=== PATIENT | male | born 1950 | race African-American/Black ===

== ENCOUNTER 2024-07-18 16:02 | Observation (INO) | payer MEDICARE ==
[2024-07-18] MEDS ORDERED: Acetaminophen 325 MG TAB PO PRN (16:51)
[2024-07-18] MEDS ORDERED: Loperamide HCl 2 MG CAP PO PRN (16:51)
[2024-07-18] MEDS ORDERED: Ondansetron ODT 4 MG TAB PO PRN (16:51)
[2024-07-18] MEDS ORDERED: Senokot S 8.6-50 MG TAB PO PRN (16:51)
[2024-07-18] MEDS ORDERED: Calcium Carbonate 500 MG ChewTAB PO PRN (16:51)
[2024-07-18 16:59] LABS: #Basophils 0.02 10x3/uL (0.0-0.2); #Eosinphils 0.21 10x3/uL (0.0-0.5); #Monocytes 0.38 10x3/uL (0.0-1.1); #Neutrophils 2.16 10x3/uL (1.5-8.4); %Basophils 0.5 % (0.0-2.0); %Eosinophils 4.7 % (0.0-6.0); %Lymphocytes 37.4 % (18.0-47.0); %Monocytes 8.6 % (0.0-10.0); %Neutrophils 48.6 % (40.0-75.0); Hematocrit 42.7 % (38.8-50.0); Hemoglobin 13.8 g/dL (13.5-17.5); Mean Corpuscular HGB CONC 32.3 g/dL (32.0-36.0); Mean Corpuscular Hemoglobin 32.4 pg (27.0-33.0); Mean Corpuscular Volume 100.2 fL (81.2-95.1); Platelet Count 244 10x3/uL (150-450); RBC Distribution Width 12.6 % (11.5-14.5); Red Blood Cell (RBC) Count 4.26 10x6/uL (4.32-5.72); White Blood Cell (WBC) Count 4.4 10x3/uL (3.5-10.5)
[2024-07-18] MEDS ORDERED: Metoprolol Tartrate 25 MG TAB ONE (17:00)
[2024-07-18] MEDS ORDERED: Nitroglycerin 2% Ointment 1 INCH/1 GM Packet ONE (17:00)
[2024-07-18 17:12] LABS: ALT (SGPT) 10 U/L (8-55); AST (SGOT) 17 U/L (5-34); Alkaline Phosphatase 40 U/L (40-110); Anion Gap 13 mmol/L (10-20); BUN (Urea Nitrogen) 14 mg/dL (8.4-25.7); Bilirubin, Total 0.5 mg/dL (0.2-1.2); Calc. Creatinine Clearance 0 mL/min (70-130); Carbon Dioxide 25 mmol/L (23-31); Chloride 107 mmol/L (98-107); Estimated GFR 70; Globulin 3.3 g/dL (2.4-3.5); Glucose 89 mg/dL (83-110); Lipase 21 U/L (8-78); Magnesium 1.9 mg/dL (1.6-2.6); Potassium 3.7 mmol/L (3.5-5.1); Protein, Total 7.3 g/dL (5.8-8.1); Sodium 141 mmol/L (136-145)
[2024-07-18] MEDS ORDERED: hydrALAZINE 20 MG/ML VIAL SLOW IVP PRN (17:17)
[2024-07-18 17:18] LABS: PTT 27.7 sec (22.0-33.0); Prothrombin Time 11.2 sec (9.5-12.1)
[2024-07-18 17:19] LABS: Troponin I 0.048 ng/mL (< 0.028)
[2024-07-18] MEDS ORDERED: Furosemide 40 MG (4 mL) VIAL ONE (17:31)
[2024-07-18] MEDS ORDERED: Aspirin Chewable 81 MG TAB ONE (17:40)
[2024-07-18] MEDS: Aspirin 81 mg Enteric Coated Tablet PO SCH (20:40)
[2024-07-18] MEDS: Atorvastatin Calcium 20 MG TAB PO SCH (20:40)
[2024-07-18] MEDS: Nicotine 14 MG PATCH TD SCH (20:40)
[2024-07-19] MEDS: Sodium Chloride 0.9% 1,000 ML IV SCH (02:59)
[2024-07-19] MEDS: Nitroglycerin 2% Ointment 1 INCH/1 GM Packet TOP SCH (02:59)
[2024-07-19 03:43] LABS: Anion Gap 13 mmol/L (10-20); BUN (Urea Nitrogen) 17 mg/dL (8.4-25.7); Calc. Creatinine Clearance 0 mL/min (70-130); Calcium 9.3 mg/dL (7.8-10.44); Carbon Dioxide 25 mmol/L (23-31); Chloride 105 mmol/L (98-107); Estimated GFR 68; Glucose 115 mg/dL (83-110); Potassium 3.8 mmol/L (3.5-5.1); Sodium 139 mmol/L (136-145)
[2024-07-19] MEDS ORDERED: Furosemide 40 MG (4 mL) VIAL ONE (05:52)
[2024-07-19] MEDS ORDERED: Nitroglycerin 2% Ointment 1 INCH/1 GM Packet ONE (05:53)
[2024-07-19] MEDS: Furosemide 40 MG (4 mL) VIAL SLOW IVP SCH (06:07)
[2024-07-19] MEDS ORDERED: Lidocaine 1% PF 5 ML VIAL ONE (06:13)
[2024-07-19] MEDS ORDERED: Nitroglycerin 50 MG/250 ML BOT 0 ML ONE (06:16)
[2024-07-19] MEDS ORDERED: Verapamil 5 MG/2 ML VIAL ONE (06:17)
[2024-07-19] MEDS ORDERED: Heparin 10,000 UNITS/ 10 ML VIAL ONE (06:17)
[2024-07-19] MEDS ORDERED: Adenosine 6 mg (2 mL) VIAL ONE (06:30)
[2024-07-19] MEDS ORDERED: Midazolam HCl 2 mg/2 ml Vial ONE (06:41)
[2024-07-19] MEDS ORDERED: fentaNYL 50 mcg/mL 1 mL Vial ONE (06:41)
[2024-07-19] MEDS ORDERED: Atropine Sulfate 1 mg/1 ml Vial ONE (06:57)
[2024-07-19] MEDS ORDERED: Iopamidol 300 61% 100 ML VIAL FS ONE (07:53)
[2024-07-19] MEDS ORDERED: Acetaminophen/Codeine 30-300mg Tablet PO PRN ×2 (08:13)
[2024-07-19] MEDS ORDERED: Nitroglycerin 0.4 MG TAB (25 Tab Bottle) SL PRN (08:13)
[2024-07-19] MEDS ORDERED: Sodium Chloride 0.9% 200 ML IV PRN (08:13)
[2024-07-19] MEDS ORDERED: Senokot S 8.6-50 MG TAB PO PRN (08:22)
[2024-07-19] MEDS ORDERED: Carvedilol 6.25 MG TAB PO SCH ×2 (08:30→17:00)
[2024-07-19] MEDS ORDERED: Lisinopril 5 MG TAB PO SCH (09:00)
[2024-07-19] MEDS ORDERED: Aspirin 81 mg Enteric Coated Tablet PO SCH (09:00)
== END 2024-07-19 17:00 | disposition short-term general hospital (02) ==
LOC: CSHERS 16:02 → CSHERHOLD 16:51
PROVIDERS: ADMIT Internal Medicine; ATTEND Internal Medicine
PROC: 4A023N8 Measurement of Cardiac Sampling and Pressure, Bilateral, Percutaneous Approach (ICD-10-PCS; principal; 2024-07-19)
PROC: B208YZZ Plain Radiography of Left Internal Mammary Bypass Graft using Other Contrast (ICD-10-PCS; 2024-07-19)
DX: I25.110 Atherosclerotic heart disease of native coronary artery with unstable angina pectoris (principal); I25.5 Ischemic cardiomyopathy; K21.9 Gastro-esophageal reflux disease without esophagitis; N40.0 Benign prostatic hyperplasia without lower urinary tract symptoms; I11.0 Hypertensive heart disease with heart failure; I50.21 Acute systolic (congestive) heart failure; E78.5 Hyperlipidemia, unspecified; F17.210 Nicotine dependence, cigarettes, uncomplicated; Z95.1 Presence of aortocoronary bypass graft; Z79.899 Other long term (current) drug therapy
CPT/HCPCS: 71045; 80048; 80053; 83690; 83735; 83880; 84484; 85025; 85610; 85730; 93005; 93306; 93459; 96374; 99285; C1769; C1894; J1644; J1940 ×2; J2250; J3010; J7030; Q9967; 36415; 96376; 99152; G0378; J0153; J0461

== ENCOUNTER 2024-11-03 20:24 | Emergency (ER) | payer MEDICARE, OTHER ==
[2024-11-03] MEDS ORDERED: HYDROcodone/Acetaminophen 5/325 mg Tablet ONE (21:53)
[2024-11-03] MEDS ORDERED: Bacitracin 1 PK ONE (21:53)
== END 2024-11-03 21:54 | disposition home or self-care (01) ==
LOC: CSHERS 20:24
DX: S13.4XXA Sprain of ligaments of cervical spine, initial encounter (principal); V89.2XXA Person injured in unspecified motor-vehicle accident, traffic, initial encounter
CPT/HCPCS: 36416; 70450; 71045; 72125; 93005; 93010; G0390

== ENCOUNTER 2025-07-06 14:48 | Observation (INO) | payer MEDICARE ==
[2025-07-06 15:17] LABS: #Basophils Less than 0.03 10x3/uL (0.0-0.2); #Eosinophils 0.35 10x3/uL (0.0-0.5); #Monocytes 0.40 10x3/uL (0.0-1.1); #Neutrophils 2.78 10x3/uL (1.5-8.4); %Basophils 0.4 % (0.0-2.0); %Eosinophils 6.8 % (0.0-6.0); %Lymphocytes 31.1 % (18.0-47.0); %Monocytes 7.7 % (0.0-10.0); %Neutrophils 53.6 % (40.0-75.0); Hematocrit 41.8 % (38.8-50.0); Hemoglobin 13.6 g/dL (13.5-17.5); Mean Corpuscular Hemoglobin 32.0 pg (27.0-33.0); Mean Corpuscular Volume 98.4 fL (81.2-95.1); Platelet Count 235 10x3/uL (150-450); Red Blood Cell (RBC) Count 4.25 10x6/uL (4.32-5.72); White Blood Cell (WBC) Count 5.18 10x3/uL (3.5-10.5)
[2025-07-06 15:32] LABS: Acetaminophen Less than 10 mcg/mL (Less than 10); Salicylate Less than 8.0 mg/dL (Less than 8.0)
[2025-07-06 15:36] LABS: Troponin I 0.035 ng/mL (< 0.028)
[2025-07-06 15:40] LABS: ALT (SGPT) 26 U/L (Less than 45); AST (SGOT) 36 U/L (11-34); Albumin 4.4 g/dL (3.1-4.5); Alkaline Phosphatase 46 U/L (40-110); Anion Gap 20 mmol/L (10-20); BUN (Urea Nitrogen) 30 mg/dL (8.4-25.7); Bilirubin, Total 0.9 mg/dL (0.3-1.2); Calc. Creatinine Clearance 0 mL/min (70-130); Calcium 8.8 mg/dL (7.8-10.44); Carbon Dioxide 17 mmol/L (23-31); Chloride 110 mmol/L (98-107); Globulin 3.1 g/dL (2.4-3.5); Glucose 110 mg/dL (83-110); Lipase 8 U/L (8-78); Magnesium 2.0 mg/dL (1.6-2.6); Potassium 5.3 mmol/L (3.5-5.1); Sodium 142 mmol/L (136-145)
[2025-07-06 16:02] LABS: Glucose, Urine (Dipstick) Normal (Negative); Leukocyte Negative (Negative); Protein, Urine (Dipstick) 30 mg/dl (Neg-Trace); Specific Gravity, Urine 1.025 (1.005-1.030)
[2025-07-06 16:12] LABS: Cocaine Metabolite Screen PRELIM POSITIVE (Negative); THC/Cannabinoid Screen PRELIM POSITIVE (Negative); Tricyclic Screen Negative (Negative)
[2025-07-06] MEDS ORDERED: Aspirin Chewable 81 MG TAB ONE (16:34)
[2025-07-06 16:44] LABS: Bacteria/HPF Rare-Few HPF (None Seen); CAUTI Indications for Culture Alt mental st,lethar; RBC/HPF None Seen HPF (0-3); Urine Culture Reflex No No; WBC/HPF None Seen HPF (0-3)
[2025-07-06] MEDS ORDERED: Melatonin 3 MG TAB PO PRN (17:28)
[2025-07-06] MEDS ORDERED: Senokot S 8.6-50 MG TAB PO PRN (17:28)
[2025-07-06] MEDS ORDERED: Ondansetron PF 4 MG/2 ML Vial IVP PRN (17:28)
[2025-07-06] MEDS ORDERED: Guaifenesin DM 100-10/5 ML UDCUP PO PRN (17:28)
[2025-07-06] MEDS ORDERED: Acetaminophen 325 MG TAB PO PRN (17:28)
[2025-07-06] MEDS ORDERED: Nitroglycerin 0.4 MG TAB (25 Tab Bottle) SL PRN (17:32)
[2025-07-06 17:55] VITALS: BMI 20.5
[2025-07-06 18:32] LABS: Troponin I 0.046 ng/mL (< 0.028)
[2025-07-06] MEDS: PNEUMOC 20-VAL CONJ-DIP CRM/PF 0.5 ML SYRINGE IM ONE (19:00)
[2025-07-06] MEDS: Sodium Bicarb 50 MEQ/50 ML Abboject 8.4% SYRINGE IVP SCH (19:01)
[2025-07-06 21:13] LABS: Troponin I 0.036 ng/mL (< 0.028)
[2025-07-07 05:40] LABS: #Basophils 0.03 10x3/uL (0.0-0.2); #Eosinophils 0.42 10x3/uL (0.0-0.5); #Monocytes 0.42 10x3/uL (0.0-1.1); #Neutrophils 2.59 10x3/uL (1.5-8.4); %Basophils 0.5 % (0.0-2.0); %Eosinophils 7.6 % (0.0-6.0); %Lymphocytes 37.6 % (18.0-47.0); %Monocytes 7.6 % (0.0-10.0); %Neutrophils 46.5 % (40.0-75.0); Hematocrit 34.5 % (38.8-50.0); Hemoglobin 11.4 g/dL (13.5-17.5); Mean Corpuscular Hemoglobin 31.8 pg (27.0-33.0); Mean Corpuscular Volume 96.4 fL (81.2-95.1); Platelet Count 195 10x3/uL (150-450); Red Blood Cell (RBC) Count 3.58 10x6/uL (4.32-5.72); White Blood Cell (WBC) Count 5.56 10x3/uL (3.5-10.5)
[2025-07-07 05:56] LABS: Anion Gap 15 mmol/L (10-20); BUN (Urea Nitrogen) 25 mg/dL (8.4-25.7); Calc. Creatinine Clearance 48 mL/min (70-130); Calcium 8.1 mg/dL (7.8-10.44); Carbon Dioxide 18 mmol/L (23-31); Cardiac Risk 3.5 (Less than 4.5); Chloride 109 mmol/L (98-107); Cholesterol 105 mg/dl (< 200 Desired); Glucose 90 mg/dL (83-110); HDL Cholesterol 30 mg/dL (>60 Neg Risk); LDL Cholesterol, Calculated 66 mg/dL; Potassium 4.0 mmol/L (3.5-5.1); Sodium 138 mmol/L (136-145); Triglycerides 46 mg/dL (Less than 150)
[2025-07-07] MEDS ORDERED: Carvedilol 3.125 MG TAB PO SCH (08:00)
[2025-07-07 08:03] VITALS: TEMP 98.1
[2025-07-07] MEDS: Lisinopril 5 MG TAB PO SCH (10:10)
[2025-07-07] MEDS: Aspirin Chewable 81 MG TAB PO SCH (10:10)
[2025-07-07] MEDS: Enoxaparin 40 MG (0.4 mL) SYRINGE SC SCH (10:10)
[2025-07-07] MEDS: Gabapentin 300 MG CAP PO SCH (10:10)
[2025-07-07 12:54] VITALS: BP 165/79
[2025-07-08] MEDS ORDERED: Valsartan 80 MG TAB PO SCH (09:00)
== END 2025-07-07 13:26 | disposition home or self-care (01) ==
LOC: CSHERS 14:48 → CSHTELE 16:10
PROVIDERS: ADMIT Hospitalist; ATTEND Hospitalist
DX: R55 Syncope and collapse (principal); E78.5 Hyperlipidemia, unspecified; I10 Essential (primary) hypertension; I25.5 Ischemic cardiomyopathy; E87.29 Other acidosis; I25.10 Atherosclerotic heart disease of native coronary artery without angina pectoris; F17.290 Nicotine dependence, other tobacco product, uncomplicated; R79.89 Other specified abnormal findings of blood chemistry; N17.9 Acute kidney failure, unspecified; E86.0 Dehydration; F19.10 Other psychoactive substance abuse, uncomplicated; E87.5 Hyperkalemia; Z88.8 Allergy status to other drugs, medicaments and biological substances; Z79.899 Other long term (current) drug therapy
CPT/HCPCS: 70450; 71045; 80048; 80053; 80061; 80306; 80307; 81001; 83690; 83735; 83880; 84484 ×2; 85025 ×2; 93005; 93306; 96372; G0378 ×3; J1650; J7030; 36415